=== PATIENT | female | born 1975 | race Caucasian/White ===

== ENCOUNTER 2024-04-06 10:50 | Outpatient (CLI) | payer BC | END 2024-04-06 10:51 | disposition home or self-care (01) | LOC: SCSMRI 10:50 | PROVIDERS: ATTEND Radiology Radiation Oncology | DX: C71.3 Malignant neoplasm of parietal lobe (principal); Z98.890 Other specified postprocedural states | CPT/HCPCS: 70250; 70553; 76376 ==

== ENCOUNTER 2024-06-11 09:30 | Outpatient (CLI) | payer BC | END 2024-06-11 09:31 | disposition home or self-care (01) | LOC: SCSMRI 09:30 | PROVIDERS: ATTEND Radiology Radiation Oncology | DX: C71.3 Malignant neoplasm of parietal lobe (principal); Z98.890 Other specified postprocedural states | CPT/HCPCS: 70553; 76376 ==